=== PATIENT | female | born 1960 | race Two or more races ===

== ENCOUNTER 2022-09-29 20:50 | Emergency (ER) | payer OTHER ==
[2022-09-29 21:01] VITALS: BP 142/80; PULSE 92; RESP 17; TEMP 98.1; BMI 26.6
[2022-09-29] MEDS ORDERED: OXYMETAZOLINE 0.05% NASAL SOLUTION 15 ML BOTTLE NS ONE (21:38)
[2022-09-29 22:39] LABS: BASO % 1.1 % (0-2.0); EOS % 2.3 % (0-4.5); HEMOGLOBIN 14.5 GM/dL (10.7-15.3); LYMPH % 33.5 % (8-40); MCH 29.7 pg (25.7-33.7); MCHC 32.9 g/dl (32.0-36.0); MEAN CELL VOLUME 90.2 fl (80-96); MEAN PLT VOLUME 10.7 fl (7.5-11.1); MONO % 10.6 % (3.8-10.2); NEUT % 52.5 % (42.8-82.8); PLATELET COUNT 332 10^3/uL (134-434); RBC 4.88 M/mm3 (3.60-5.2); RDW 14.3 % (11.6-15.6); WHITE BLOOD COUNT 10.9 K/mm3 (4.0-10.0)
[2022-09-29 22:59] LABS: ALBUMIN 3.9 g/dl (3.4-5.0); BLOOD UREA NITROGEN 11.9 mg/dL (7-18); CALCIUM 9.6 mg/dL (8.5-10.1)
[2022-09-29 23:02] LABS: CREATININE 0.7 mg/dL (0.55-1.3)
[2022-09-29 23:04] LABS: BILIRUBIN,TOTAL 0.3 mg/dL (0.2-1); TOT PROT 7.8 g/dl (6.4-8.2)
[2022-09-29 23:35] LABS: INR 1.02 (0.83-1.09); PROTHROMBIN TIME (PATIENT) 11.7 SEC (9.7-13.0)
[2022-09-29 23:38] LABS: ACTIVATED PTT 36.2 SECONDS (25.2-36.5)
== END 2022-09-30 00:24 | disposition home or self-care (01) ==
LOC: JER 20:50
DX: R04.0 Epistaxis (principal)
CPT/HCPCS: 36415; 80053; 85025; 85610; 85730; 93005; 93010; 99284-25

== ENCOUNTER 2022-09-30 12:01 | Emergency (ER) | payer OTHER ==
[2022-09-30 12:43] VITALS: BMI 35.1
[2022-09-30 15:07] VITALS: BP 137/98; PULSE 69; RESP 17; TEMP 98.1
[2022-09-30] MEDS ORDERED: TRANEXAMIC ACID 1000 MG/10 ML VIAL IVPUSH ONE (15:19)
[2022-09-30] MEDS ORDERED: TRANEXAMIC ACID 1000 MG/10 ML VIAL ONE (15:20)
== END 2022-09-30 16:02 | disposition home or self-care (01) ==
LOC: JER 12:01
PROC: 3E033GC Introduction of Other Therapeutic Substance into Peripheral Vein, Percutaneous Approach (ICD-10-PCS; principal; 2022-09-30)
DX: R04.0 Epistaxis (principal)
CPT/HCPCS: 99284-25

== ENCOUNTER 2024-06-01 11:46 | Inpatient (IN) | payer OTHER ==
[2024-06-01 13:05] LABS: INR 1.01 (0.83-1.09); PROTHROMBIN TIME (PATIENT) 11.6 SEC (9.7-13.0)
[2024-06-01 13:07] LABS: ACTIVATED PTT 37.3 SECONDS (25.2-36.5)
[2024-06-01 13:13] LABS: BASO % 1.1 % (0-2.0); EOS % 2.2 % (0-4.5); HEMATOCRIT 44.5 % (32.4-45.2); MCH 30.4 pg (25.7-33.7); MCHC 33.6 g/dl (32.0-36.0); MEAN CELL VOLUME 90.4 fl (80-96); MONO % 13.7 % (3.8-10.2); PLATELET COUNT 315 10^3/uL (134-434); RBC 4.92 M/mm3 (3.60-5.2); RDW 14.2 % (11.6-15.6); WHITE BLOOD COUNT 9.4 K/mm3 (4.0-10.0)
[2024-06-01 13:21] LABS: URINE APPEARANCE CLEAR; URINE BILIRUBIN NEGATIVE (NEGATIVE); URINE COLOR YELLOW; URINE GLUCOSE (UA) NEGATIVE (NEGATIVE); URINE KETONE NEGATIVE (NEGATIVE); URINE LEUK ESTERASE NEGATIVE (NEGATIVE); URINE NITRITE NEGATIVE (NEGATIVE); URINE PROTEIN NEGATIVE (NEGATIVE); URINE UROBILINOGEN 0.2 mg/dL (0.2-1.0)
[2024-06-01 13:25] LABS: POTASSIUM 4.2 mmol/L (3.5-5.1)
[2024-06-01 13:27] LABS: CALCIUM 9.6 mg/dL (8.5-10.1)
[2024-06-01 13:28] LABS: ALBUMIN 4.1 g/dl (3.4-5.0)
[2024-06-01 13:29] LABS: BLOOD UREA NITROGEN 9.8 mg/dL (7-18)
[2024-06-01 13:32] LABS: CREATININE 0.8 mg/dL (0.55-1.3)
[2024-06-01 13:33] LABS: TOT PROT 8.2 g/dl (6.4-8.2)
[2024-06-01 13:34] LABS: BILIRUBIN,TOTAL 0.6 mg/dL (0.2-1)
[2024-06-01] MEDS ORDERED: CLOPIDOGREL BISULFATE 75 MG TABLET (FP) ONE (14:09)
[2024-06-01] MEDS ORDERED: ASPIRIN 81 MG CHEWABLE TABLETS ONE (14:10)
[2024-06-01] MEDS: CLOPIDOGREL BISULFATE 75 MG TABLET (FP) PO ONE (14:14)
[2024-06-01] MEDS: ASPIRIN 81 MG CHEWABLE TABLETS PO ONE (14:14)
[2024-06-01] MEDS: INSULIN ASPART SLIDING SCALE (NOVOLOG) 1 VIAL SQ SCH (16:36)
[2024-06-01 18:08] VITALS: BMI 33.2
[2024-06-01] MEDS: ATORVASTATIN CA 80 MG TABLET (FP) PO SCH (21:20)
[2024-06-01] MEDS: ACETAMINOPHEN 1000 MG/100 ML BAG IVPB ONE (21:20)
[2024-06-01] MEDS: MELATONIN 5 MG TABLETS PO ONE (21:20)
[2024-06-02 07:44] LABS: BASO % 0.8 % (0-2.0); EOS % 2.9 % (0-4.5); HEMATOCRIT 41.3 % (32.4-45.2); LYMPH % 39.3 % (8-40); MCH 30.3 pg (25.7-33.7); MCHC 33.9 g/dl (32.0-36.0); MEAN CELL VOLUME 89.5 fl (80-96); MEAN PLT VOLUME 10.2 fl (7.5-11.1); MONO % 13.1 % (3.8-10.2); NEUT % 43.9 % (42.8-82.8); PLATELET COUNT 292 10^3/uL (134-434); RBC 4.62 M/mm3 (3.60-5.2); RDW 14.1 % (11.6-15.6); WHITE BLOOD COUNT 9.3 K/mm3 (4.0-10.0)
[2024-06-02 07:49] LABS: POTASSIUM 4.1 mmol/L (3.5-5.1)
[2024-06-02 07:57] LABS: CALCIUM 9.4 mg/dL (8.5-10.1)
[2024-06-02 07:58] LABS: ALBUMIN 3.6 g/dl (3.4-5.0); BLOOD UREA NITROGEN 13.6 mg/dL (7-18)
[2024-06-02 07:59] LABS: CREATININE 0.7 mg/dL (0.55-1.3)
[2024-06-02 08:01] LABS: PHOSPHOROUS 4.6 mg/dL (2.5-4.9)
[2024-06-02 08:02] LABS: BILIRUBIN,TOTAL 0.6 mg/dL (0.2-1); TOT PROT 7.1 g/dl (6.4-8.2)
[2024-06-02] MEDS: ENOXAPARIN NA (PORCINE) 40 MG/0.4 ML DISP.SYRIN SQ SCH (09:36)
[2024-06-02] MEDS: ASPIRIN 81 MG CHEWABLE TABLETS PO SCH (09:37)
[2024-06-02] MEDS: CLOPIDOGREL BISULFATE 75 MG TABLET (FP) PO SCH (09:37)
[2024-06-02] MEDS: ATENOLOL 50 MG TABLET (FP) PO SCH (09:45)
[2024-06-02] MEDS: LISINOPRIL 10 MG TABLET PO SCH ×2 (09:45→21:54)
[2024-06-02] MEDS: LISINOPRIL 10 MG TABLET PO ONE (14:36)
[2024-06-02] MEDS: amLODIPine BESYLATE 5 MG TABLET (FP) PO ONE ×2 (17:04→19:17)
[2024-06-02] MEDS: ACETAMINOPHEN 1000 MG/100 ML BAG IVPB ONE (19:18)
[2024-06-02] MEDS: hydrALAZINE HCL 20 MG/ML VIAL IVPUSH PRN (20:22)
[2024-06-02] MEDS: ROSUVASTATIN CA 20 MG TABLET PO SCH (21:54)
[2024-06-02] MEDS: MELATONIN 5 MG TABLETS PO ONE (22:22)
[2024-06-03 08:42] LABS: BASO % 0.6 % (0-2.0); HEMATOCRIT 44.5 % (32.4-45.2); HEMOGLOBIN 15.4 GM/dL (10.7-15.3); LYMPH % 16.8 % (8-40); MCH 30.5 pg (25.7-33.7); MCHC 34.6 g/dl (32.0-36.0); MEAN CELL VOLUME 88.2 fl (80-96); MONO % 2.7 % (3.8-10.2); NEUT % 79.9 % (42.8-82.8); PLATELET COUNT 339 10^3/uL (134-434); RBC 5.05 M/mm3 (3.60-5.2); RDW 13.9 % (11.6-15.6); WHITE BLOOD COUNT 13.8 K/mm3 (4.0-10.0)
[2024-06-03 09:02] LABS: POTASSIUM 3.8 mmol/L (3.5-5.1)
[2024-06-03 09:10] LABS: ALBUMIN 4.3 g/dl (3.4-5.0); BLOOD UREA NITROGEN 10.5 mg/dL (7-18); CALCIUM 10.1 mg/dL (8.5-10.1)
[2024-06-03 09:11] LABS: MAGNESIUM 2.2 mg/dL (1.8-2.4)
[2024-06-03 09:13] LABS: CREATININE 0.7 mg/dL (0.55-1.3); PHOSPHOROUS 2.8 mg/dL (2.5-4.9)
[2024-06-03 09:15] LABS: BILIRUBIN,TOTAL 0.6 mg/dL (0.2-1); TOT PROT 8.2 g/dl (6.4-8.2)
[2024-06-03] MEDS: ASPIRIN COATED 81 MG TABLET.EC PO SCH (09:28)
[2024-06-03] MEDS: TRIMETHOBENZAMIDE HCL 200MG/2ML INJ IM ONE (12:03)
[2024-06-03] MEDS: hydrALAZINE HCL 25 MG TABLET (FP) PO SCH (14:14)
[2024-06-03] MEDS: ACETAMINOPHEN 325 MG TABLET (FP) PO PRN (21:12)
[2024-06-03] MEDS: MELATONIN 5 MG TABLETS PO ONE (21:14)
[2024-06-03] MEDS: LISINOPRIL 20 MG TABLET PO SCH (21:14)
[2024-06-04 06:46] LABS: BASO % 0.7 % (0-2.0); EOS % 0.9 % (0-4.5); HEMATOCRIT 42.3 % (32.4-45.2); HEMOGLOBIN 14.2 GM/dL (10.7-15.3); LYMPH % 26.3 % (8-40); MCH 30.1 pg (25.7-33.7); MCHC 33.7 g/dl (32.0-36.0); MEAN CELL VOLUME 89.2 fl (80-96); MEAN PLT VOLUME 10.1 fl (7.5-11.1); NEUT % 62.1 % (42.8-82.8); PLATELET COUNT 318 10^3/uL (134-434); RBC 4.74 M/mm3 (3.60-5.2); RDW 14.4 % (11.6-15.6); WHITE BLOOD COUNT 13.4 K/mm3 (4.0-10.0)
[2024-06-04 07:06] LABS: POTASSIUM 3.8 mmol/L (3.5-5.1)
[2024-06-04 07:13] LABS: ALBUMIN 3.8 g/dl (3.4-5.0); CALCIUM 9.4 mg/dL (8.5-10.1)
[2024-06-04 07:18] LABS: BILIRUBIN,TOTAL 0.6 mg/dL (0.2-1); CREATININE 0.7 mg/dL (0.55-1.3); TOT PROT 7.4 g/dl (6.4-8.2)
[2024-06-04] MEDS: ATENOLOL 50 MG TABLET (FP) PO SCH (10:07)
[2024-06-04] MEDS: hydrALAZINE HCL 50 MG TABLET (FP) PO SCH (21:43)
[2024-06-04] MEDS: POLYETHYLENE GLYCOL (HEALTHYLAX) 3350 17 GM PACKET PO SCH (21:44)
[2024-06-05] MEDS: MELATONIN 5 MG TABLETS PO ONE (00:09)
[2024-06-05] MEDS: LABETALOL HCL 100 MG TABLET (FP) PO SCH (10:12)
[2024-06-05 11:37] VITALS: RESP 17
[2024-06-05 12:40] VITALS: BP 127/75; PULSE 78; TEMP 98.4
== END 2024-06-05 14:55 | disposition home or self-care (01) | DRG 45 ==
LOC: JER 11:46 → JERBED 13:58 → J4W 17:06 → OBSVTOIN 06-02 13:20 → J4W 06-02 19:36
PROVIDERS: ADMIT Internal Medicine; ATTEND Internal Medicine
DX: I63.89 Other cerebral infarction (principal); I10 Essential (primary) hypertension; E11.9 Type 2 diabetes mellitus without complications; R29.701 NIHSS score 1; I16.1 Hypertensive emergency; R47.1 Dysarthria and anarthria; E04.2 Nontoxic multinodular goiter
CPT/HCPCS: 0241U-QW; 36415; 70450-TC; 70496-TC; 70498-TC; 70551-TC; 80053; 80061; 81003; 82550; 82962; 83036; 83735; 84100; 84439; 84443; 84484; 85025; 85610; 85730; 86850; 86900; 86901; 87040; 93005; 93010; 93306-TC; 93880-TC; 97116-GP; 97161-GP; 99285-25; G0378; J0131

== ENCOUNTER → 2024-07-11 | Day surgery (SDC) | payer OTHER | END | disposition home or self-care (01) | LOC: JRADIR 10:55 | PROVIDERS: ATTEND Internal Medicine Endocrinology, Diabetes & Metabolism | PROC: 0GBG3ZX Excision of Left Thyroid Gland Lobe, Percutaneous Approach, Diagnostic (ICD-10-PCS; principal; 2024-07-11) | DX: E04.1 Nontoxic single thyroid nodule (principal) | CPT/HCPCS: 10005; 76942; 88173; 88305-TC ==